=== PATIENT | male | born 1955 | race Caucasian/White ===

== ENCOUNTER 2020-05-24 06:13 | Day surgery (SDC) | payer OTHER ==
[2020-05-22 16:36] VITALS: BMI 24.4
[2020-05-24] MEDS ORDERED: MIDAZOLAM HCL 2 MG/2 ML SINGLE DOSE VIAL ONE ×3 (07:02→10:00)
[2020-05-24] MEDS ORDERED: ONDANSETRON 4 MG/2 ML VIAL ONE (07:03)
[2020-05-24] MEDS ORDERED: KETOROLAC TROMETHAMINE 30 MG/1 ML VIAL ONE (07:03)
[2020-05-24] MEDS ORDERED: DEXAMETHASONE SOD PHOSPHATE 4 MG/1 ML VIAL ONE (07:03)
[2020-05-24] MEDS ORDERED: PROPOFOL 20 ML ONE ×2 (07:04)
[2020-05-24] MEDS ORDERED: ONDANSETRON 4 MG/2 ML VIAL IVPUSH PRN (07:14)
[2020-05-24] MEDS ORDERED: oxyCODONE HCL 5 MG TABLET PO PRN ×2 (07:14)
[2020-05-24] MEDS ORDERED: LACTATED RINGERS SOLUTION 1,000 ML IV SCH (07:15)
[2020-05-24] MEDS ORDERED: ROPIVACAINE HCL 0.5% 30ML VIAL ONE (07:35)
[2020-05-24] MEDS ORDERED: BUPIVACAINE HCL/PF 0.25% (2.5MG/ML) 10 ML VIAL ONE (07:38)
[2020-05-24] MEDS ORDERED: ceFAZolin SODIUM 1 GM VIAL ONE (08:11)
[2020-05-24] MEDS ORDERED: MIDAZOLAM HCL 2 MG/2 ML SINGLE DOSE VIAL IVPUSH ONE (11:13)
[2020-05-24 11:26] VITALS: PULSE 68; TEMP 97.4
[2020-05-24 12:07] VITALS: BP 118/69
== END 2020-05-24 12:15 | disposition home or self-care (01) ==
LOC: FASU 06:13
PROVIDERS: ATTEND Orthopaedic Surgery Sports Medicine
PROC: 0MB30ZZ Excision of Right Elbow Bursa and Ligament, Open Approach (ICD-10-PCS; principal; 2020-05-24 08:25)
DX: M70.21 Olecranon bursitis, right elbow (principal)
CPT/HCPCS: 82962; 88305-TC; 94760

== ENCOUNTER 2020-07-22 09:55 | Emergency (ER) | payer OTHER | END 2020-07-22 11:19 | disposition home or self-care (01) | LOC: JVIRT 09:55 | DX: Z11.52 Encounter for screening for COVID-19 (principal) | CPT/HCPCS: G2251-GT; Q3014-GT ==

== ENCOUNTER 2020-07-26 05:51 | Day surgery (SDC) | payer OTHER ==
[2020-07-23 11:22] VITALS: BMI 25.1
[2020-07-26] MEDS ORDERED: MIDAZOLAM HCL 2 MG/2 ML SINGLE DOSE VIAL ONE (07:36)
[2020-07-26] MEDS ORDERED: PROPOFOL 20 ML ONE (07:42)
[2020-07-26] MEDS ORDERED: ROCURONIUM BROMIDE 50 MG/5 ML SYRINGE ONE (07:42)
[2020-07-26] MEDS ORDERED: EPHEDRINE SULFATE/0.9% NACL/PF 50 MG/10 ML SYRINGE NR ONE (07:59)
[2020-07-26] MEDS ORDERED: LIDOCAINE HCL/PF 2% SDV 5ML VIAL ONE (08:13)
[2020-07-26] MEDS ORDERED: ETOMIDATE 20 MG/10 ML AMPUL IVPUSH ONE (08:13)
[2020-07-26] MEDS ORDERED: LIDOCAINE HCL 2% JELLY (5 ML/TUBE) ONE (08:13)
[2020-07-26] MEDS ORDERED: ONDANSETRON 4 MG/2 ML VIAL ONE ×2 (08:13→09:59)
[2020-07-26] MEDS ORDERED: VANCOMYCIN 1,000 MG VIAL (RESTRICTED TO ID ONLY) ONE (08:30)
[2020-07-26] MEDS ORDERED: KETOROLAC TROMETHAMINE 30 MG/1 ML VIAL ONE (09:59)
[2020-07-26] MEDS ORDERED: PROMETHAZINE HCL 25 MG/1 ML VIAL IVPUSH PRN (10:37)
[2020-07-26] MEDS ORDERED: oxyCODONE HCL 5 MG TABLET PO PRN (10:37)
[2020-07-26] MEDS ORDERED: ONDANSETRON 4 MG/2 ML VIAL IVPUSH PRN (10:37)
[2020-07-26] MEDS ORDERED: LACTATED RINGERS SOLUTION 1,000 ML IV SCH (10:45)
[2020-07-26] MEDS ORDERED: ACETAMINOPHEN 325 MG TABLET (FP) PO PRN ×2 (12:00)
[2020-07-26] MEDS ORDERED: oxyCODONE HCL 5 MG TABLET ONE ×2 (12:35→13:36)
[2020-07-26] MEDS ORDERED: ACETAMINOPHEN 1000 MG/100 ML VIAL (NON FORMULARY) IVPB ONE (17:04)
[2020-07-26] MEDS ORDERED: ACETAMINOPHEN INJECTION 100 ML IVPB ONE (17:05)
[2020-07-26] MEDS: oxyCODONE HCL 5 MG TABLET PO PRN ×2 (18:18→20:37)
[2020-07-26] MEDS: CEFAZOLIN 1 GM/D5W 1 GM/50 ML BAG IVPB SCH (18:19)
[2020-07-26] MEDS: ASPIRIN 81 MG CHEWABLE TABLETS PO SCH (18:19)
[2020-07-26] MEDS: metFORMIN HCL 500 MG TABLET (FP) PO SCH (18:19)
[2020-07-26] MEDS: ACETAMINOPHEN 325 MG TABLET (FP) PO PRN (20:36)
[2020-07-27] MEDS: CEFAZOLIN 1 GM/D5W 1 GM/50 ML BAG IVPB SCH ×2 (01:35→09:31)
[2020-07-27] MEDS: oxyCODONE HCL 5 MG TABLET PO PRN ×3 (01:36→11:24)
[2020-07-27] MEDS: ACETAMINOPHEN 325 MG TABLET (FP) PO PRN ×2 (05:04→11:25)
[2020-07-27] MEDS: metFORMIN HCL 500 MG TABLET (FP) PO SCH (06:47)
[2020-07-27] MEDS: ASPIRIN 81 MG CHEWABLE TABLETS PO SCH (09:31)
[2020-07-27] MEDS ORDERED: CHOLECALCIFEROL (VIT D3) 1,000 UNIT (25 MCG) TABLET PO SCH (10:00)
[2020-07-27] MEDS ORDERED: MULTIVITAMINS (DAILY MVI) TABLET (FP) PO SCH (10:00)
[2020-07-27] MEDS ORDERED: CYANOCOBALAMIN 1,000 MCG TABLET (FP) PO SCH (10:00)
[2020-07-27] MEDS ORDERED: MULTIVIT MIN PO SCH (10:00)
[2020-07-27] MEDS ORDERED: PATIENT'S OWN MEDICATION (NON-FORMULARY) (Omega-3/Dha/Epa/Fish Oil [Fish Oil 500 Mg Softge PO SCH (10:00)
[2020-07-27] MEDS ORDERED: HERB PO SCH (10:00)
[2020-07-27] MEDS ORDERED: AMPHETAMINE SULFATE PO SCH ×2 (10:00)
[2020-07-27] MEDS ORDERED: LOSARTAN POTASSIUM 50 MG TABLET PO SCH (10:00)
[2020-07-27] MEDS ORDERED: ATORVASTATIN CA 40 MG TABLET (FP) PO SCH (10:00)
[2020-07-27] MEDS ORDERED: PATIENT'S OWN MEDICATION (NON-FORMULARY) (Metformin Hcl [Glucophage] 1,000 MG Tablet) PO SCH (10:00)
[2020-07-27] MEDS ORDERED: PATIENT'S OWN MEDICATION (NON-FORMULARY) (Empagliflozin [Jardiance] 25 MG Tablet) PO SCH (10:00)
[2020-07-27] MEDS ORDERED: [UNRECOGNIZED DRUG - OTHER] PO SCH (10:00)
[2020-07-27] MEDS ORDERED: metoPROLOL SUCCINATE 25 MG TAB.SR.24H (FP) PO SCH (10:00)
[2020-07-27 14:03] VITALS: BP 116/61; PULSE 73; TEMP 98.7
== END 2020-07-27 15:19 | disposition home or self-care (01) ==
LOC: FASUSAT 05:51 → FM/S 17:59 → FASUSAT 07-27 15:19
PROVIDERS: ATTEND Orthopaedic Surgery Sports Medicine
PROC: 0M930ZZ Drainage of Right Elbow Bursa and Ligament, Open Approach (ICD-10-PCS; 2020-07-26)
PROC: 0KQ70ZZ Repair Right Upper Arm Muscle, Open Approach (ICD-10-PCS; principal; 2020-07-26 08:26)
DX: S46.311A Strain of muscle, fascia and tendon of triceps, right arm, initial encounter (principal); X58.XXXA Exposure to other specified factors, initial encounter; Y93.9 Activity, unspecified; Y92.89 Other specified places as the place of occurrence of the external cause; Y99.9 Unspecified external cause status; E11.9 Type 2 diabetes mellitus without complications; I10 Essential (primary) hypertension
CPT/HCPCS: 82962; 87070; 87076; 87186; 87205; 94760; J0131